=== PATIENT | male | born 1990 | race Caucasian/White ===

== ENCOUNTER 2017-02-27 15:43 | Emergency (ER) | payer OTHER ==
[2017-02-27 17:18] VITALS: BP 129/81
== END 2017-02-27 17:18 | disposition home or self-care (01) ==
LOC: ED 15:43
DX: R30.0 Dysuria (principal); R36.9 Urethral discharge, unspecified; Z20.2 Contact with and (suspected) exposure to infections with a predominantly sexual mode of transmission
CPT/HCPCS: 87491; 87591; J0696

== ENCOUNTER 2017-04-27 03:27 | Emergency (ER) | payer OTHER ==
[~2017-04-27] VITALS: Ht 180.3 cm; Wt 88.5 kg
[2017-04-27 03:33] VITALS: BP 121/70
== END 2017-04-27 04:20 | disposition home or self-care (01) ==
LOC: ED 03:27
DX: Z11.3 Encounter for screening for infections with a predominantly sexual mode of transmission (principal)
CPT/HCPCS: 87491; 87591

== ENCOUNTER 2017-05-02 13:22 | Emergency (ER) | payer OTHER ==
[2017-05-02 13:31] VITALS: BP 128/91
== END 2017-05-02 13:52 | disposition home or self-care (01) ==
LOC: ED 13:22
DX: Z11.3 Encounter for screening for infections with a predominantly sexual mode of transmission (principal)
CPT/HCPCS: 87491; 87591

== ENCOUNTER 2017-05-04 02:56 | Emergency (ER) | payer OTHER ==
[2017-05-04 03:09] VITALS: BP 119/92
== END 2017-05-04 04:01 | disposition home or self-care (01) ==
LOC: ED 02:56
DX: N34.2 Other urethritis (principal)
CPT/HCPCS: 87491; 87591; J0696; J2001

== ENCOUNTER 2017-12-15 10:14 | Emergency (ER) | payer OTHER ==
[~2017-12-15] VITALS: Ht 182.9 cm; Wt 84.6 kg
[2017-12-15 10:18] VITALS: Ht 182.9 cm; Wt 84.6 kg
[2017-12-15 12:28] VITALS: BP 125/84
[2017-12-16 05:18] LABS: RAPID PLASMA REAGIN Non Reactive (Non Reactive)
== END 2017-12-15 12:28 | disposition home or self-care (01) ==
LOC: ED 10:14
PROVIDERS: Emergency Medicine
DX: Z00.8 Encounter for other general examination (principal)
CPT/HCPCS: 87491; 87591